=== PATIENT | male | born 1955 | race Caucasian/White ===

== ENCOUNTER 2017-02-24 20:22 | Emergency (ER) | payer OTHER | END 2017-02-24 22:46 | disposition home or self-care (01) | LOC: FER 20:22 | DX: S46.912A Strain of unspecified muscle, fascia and tendon at shoulder and upper arm level, left arm, initial encounter (principal); W55.32XA Struck by other hoof stock, initial encounter; Y92.009 Unspecified place in unspecified non-institutional (private) residence as the place of occurrence of the external cause | CPT/HCPCS: 73030; 99283 ==

== ENCOUNTER 2021-03-19 18:33 | Emergency (ER) | payer MEDICARE, OTHER ==
[2021-03-19] MEDS ORDERED: BLEPH-10 O20 DROPS/M EYERT (20:08)
== END 2021-03-19 20:22 | disposition home or self-care (01) ==
LOC: FER 18:33
DX: S05.01XA Injury of conjunctiva and corneal abrasion without foreign body, right eye, initial encounter (principal); I10 Essential (primary) hypertension; E78.5 Hyperlipidemia, unspecified; E11.9 Type 2 diabetes mellitus without complications; X58.XXXA Exposure to other specified factors, initial encounter
CPT/HCPCS: 99283